=== PATIENT | female | born 1955 | race Caucasian/White ===

== ENCOUNTER 2024-03-08 16:35 | Emergency (ER) | payer OTHER, SELFPAY ==
[2024-03-08 16:45] VITALS: BP 187/101
[2024-03-08 17:10] LABS: % Basophils 0.4 % (0-2); % Eosinophils 0.1 % (0-6); % Immature Granulocytes 0.4 % (0-0.5); % Monocytes 4.6 % (1.7-9.3); % Neutrophils 79.5 % (42.2-75.2); Absolute Lymphocytes 1.3 10^3/uL (1.2-3.4); Absolute Monocytes 0.4 10^3/uL (0.1-0.6); Absolute Neutrophils 6.7 10^3/uL (1.4-6.5); Hematocrit 41.6 % (37.0-47.0); Mean Corp Hgb Conc. 33.7 g/dL (33.0-37.0); Mean Corpuscular Volume 92.2 fL (81.0-99.0); Mean Platelet Volume 9.3 fL (7.4-10.4); Nucleated Red Blood Cells % 0 %; Platelet Count 259 10^3/uL (130-400); Red Blood Cell Count 4.51 10^6/uL (4.20-5.40); Red Cell Dist. Width 12.4 % (11.5-14.5); White Blood Cell Count 8.5 10^3/uL (4.8-10.8)
[2024-03-08 17:29] LABS: ALT (SGPT) 25 U/L (0-35); AST (SGOT) 30 U/L (14-36); Alkaline Phosphatase 70 U/L (38-126); Blood Urea Nitrogen 20 mg/dl (7-17); Calcium 10.2 mg/dl (8.4-10.2); Carbon Dioxide 24 mmol/L (22-30); Chloride 104 mmol/L (98-107); Glucose 119 mg/dl (70-99); Potassium 4.8 mmol/L (3.5-5.1); Sodium 143 mmol/L (135-145); Total Bilirubin 0.7 mg/dl (0.2-1.3); Total Protein 8.1 g/dl (6.3-8.2); eGFR > 60.00
[2024-03-08 17:36] LABS: Troponin I < 0.012 ng/ml
[2024-03-08 18:20] VITALS: BMI 22.6
[2024-03-08 18:24] VITALS: BP 157/82
[2024-03-08 19:00] VITALS: BP 168/103
--- NOTE | 2024-03-08 19:16 | ED.GENMED ---
History of Present Illness
General
Chief Complaint: Blood Pressure Problem
Source: patient
Exam Limitations: none
Time Seen by Provider: 03/08/24 18:12
Nursing documentation reviewed up to this point in time: agreed with
History of Present Illness
History of Present Illness:
Patient to ED with report of elevated BP. States she was seen by PCP in early summer for routine physical. Advised that her BP was borderline high. SHe was instructedto keep a BP diary and return for follow up after summer. States she did not
recheck her BP after that. Thurs she reports 'not feeling right' after her gym work-out and has felt off since. Today her friend checked her BP and told her it was high. SHe called her PCP who advised her to come to ED for eval. Denies headache,
dizziness, blurred vision. Denies any CP/pressure, SOB. BP 158/82
Past History
Past History
ED Past Medical History: None
ED Past Surgical History: None
Social History
Tobacco: Non-smoker
Alcohol: Occasional
Drug: None
Employment: Employed
Review of Systems
Review of Systems
Allergies reviewed?: Yes
All Other Systems: ROS reviewed and negative except as documented in HPI and ROS
Constitutional: Reports no symptoms
EENT: Reports no symptoms
Respiratory: Reports no symptoms
Cardiac: Reports other (Elevated BP reading STUDIO MODEL)
ABD/GI: Reports no symptoms
: Reports no symptoms
Musculoskeletal: Reports no symptoms
Skin: Reports no symptoms
Neurological: Reports no symptoms
Psychiatric: Reports no symptoms
Phy Exam
General Physical Exam
General Presentation: well appearing and no apparent distress
General age: appears stated age
General Skin: warm and dry
General Habitus: normal
General Mental: alert
Cardiovascular Exam
Cardiovascular Exam: regular rate/rhythm and no edema
Pulmonary Exam
Pulmonary Exam: lungs clear and no respiratory distress
Musculoskeletal Exam
Musculoskeletal Exam: full ROM and neuro vasc intact
Skin Exam
Skin Exam: normal color, warm/dry and no rash
Psychiatric Exam
Psychiatric Exam: normal mood/affect
Course
Orders/Labs/Results
Orders:
Orders
03/08/24 16:49
Electrocardiogram (*1) Urgent
Reason for Study: Hypertension, Benign
EKG- Treatment ONCE
03/08/24 16:57
Complete Blood Count/With Diff Urgent
Comprehensive Metabolic Panel Urgent
Troponin I Urgent
Abnormal Lab Results
03/08/24
16:57
Absolute Neuts (auto) 6.7 H 10^3/uL
(1.4-6.5)
Neutrophils % 79.5 H %
(42.2-75.2)
Lymphocytes % 15.0 L %
(20.5-51.1)
BUN 20 H mg/dl
(7-17)
Glucose 119 H mg/dl
(70-99)
03/08/24 16:57
03/08/24 16:57
Vital Signs
Initial and Last Documented VS:
Initial Vital Signs
Temp Pulse Resp BP Pulse Ox
98.2 F 97 16 187/101 98
03/08/24 16:45 03/08/24 16:45 03/08/24 16:45 03/08/24 16:45 03/08/24 16:45
Last Documented Vital Signs
Temp Pulse Resp BP Pulse Ox
98.2 F 78 18 168/103 100
03/08/24 16:45 03/08/24 19:23 03/08/24 19:23 03/08/24 19:00 03/08/24 19:15
MDM/Problems Addressed
Differential Diagnosis Includes:
Patient to ED for BP check. She had her BP checked by friend today and was told it was high. Reviewed labs, EKG with her. BP 158/82. Recommend random BP checks at home that she will document and then follow up with PCP. She is agreeable to
this. She was given instructions on s/s to return to ED and she is agreeable to plan.
*Pulse Oximetry
Patient hypoxic: no
*EKG
Comparison EKG: no changes
Rate: normal
Rhythm: sinus
*Critical Care Note
Total Time (30-74mins, 75-104mins- exclusive of procedures): Not Applicable
ED Attending Note
-
Portions of this chart may have been created with voice recognition software.� Occasional wrong word or��sound alike� substitutions may have occurred due to the inherent limitations of voice recognition software.
Discharge Plan
Departure
Patient Disposition: Home (Routine Discharge)
Date of Disposition: 03/08/24
Time of Disposition: 19:15
Patient with high blood pressure during this ER visit?: No
Condition: Good
Covid-19: Not Applicable
Discharge Problem:
Elevated blood pressure reading
Instructions: BLOOD PRESSURE
Referrals:
UNKNOWN - PT DOES,NOT KNOW [Family Provider] -
Activity Restrictions/Additional Instructions:
As we discussed, keep a blood pressure diary, follow up with your family doctor.
Interventions
Interventions:
*Risk Screen - Suicide Last Done: 03/08/24 16:45
*General Assessment Last Done: 03/08/24 18:20
*Neglect/Abuse Screening Last Done: 03/08/24 16:45
ED- Fall Risk Assessment Last Done: 03/08/24 18:20
*ED COVID-19 Vaccine History Last Done: 03/08/24 18:20
*Nursing Disposition Last Done: 03/08/24 19:24
ED- Cardiac Assessment Last Done: 03/08/24 18:24
ED- Neurological Assessment Last Done: 03/08/24 18:24
ED- Pulmonary Assessment Last Done: 03/08/24 18:24
Discharge Date and Time
Discharge Date/Time: 03/08/24 19:25
Print Language: ECUADOREAN
== END 2024-03-08 19:25 | disposition home or self-care (01) ==
LOC: EMR 16:35
PROVIDERS: EMERGENCY PHYSICIAN Emergency Medicine
DX: I10 Essential (primary) hypertension (principal)
CPT/HCPCS: 99283; 80053; 84484; 85025; 93005

== ENCOUNTER 2024-04-14 12:14 | Emergency (ER) | payer OTHER, SELFPAY ==
[2024-04-14 12:21] VITALS: BP 171/78
[2024-04-14 12:45] LABS: % Basophils 0.3 % (0-2); % Eosinophils 0.4 % (0-6); % Immature Granulocytes 0.6 % (0-0.5); % Lymphocytes 19.7 % (20.5-51.1); % Monocytes 6.4 % (1.7-9.3); % Neutrophils 72.6 % (42.2-75.2); Absolute Lymphocytes 1.3 10^3/uL (1.2-3.4); Absolute Monocytes 0.4 10^3/uL (0.1-0.6); Absolute Neutrophils 4.9 10^3/uL (1.4-6.5); Hematocrit 39.7 % (37.0-47.0); Hemoglobin 13.6 g/dL (12.0-16.0); Mean Corp Hgb Conc. 34.3 g/dL (33.0-37.0); Mean Corpuscular Hgb 31.3 pg (27.0-31.0); Mean Corpuscular Volume 91.3 fL (81.0-99.0); Mean Platelet Volume 9.3 fL (7.4-10.4); Nucleated Red Blood Cells % 0 %; Platelet Count 317 10^3/uL (130-400); Red Blood Cell Count 4.35 10^6/uL (4.20-5.40); Red Cell Dist. Width 12.2 % (11.5-14.5); White Blood Cell Count 6.7 10^3/uL (4.8-10.8)
[2024-04-14 13:01] LABS: ALT (SGPT) 25 U/L (0-35); AST (SGOT) 33 U/L (14-36); Alkaline Phosphatase 69 U/L (38-126); Blood Urea Nitrogen 20 mg/dl (7-17); Calcium 9.9 mg/dl (8.4-10.2); Carbon Dioxide 25 mmol/L (22-30); Chloride 102 mmol/L (98-107); Glucose 110 mg/dl (70-99); Potassium 4.1 mmol/L (3.5-5.1); Sodium 137 mmol/L (135-145); Total Bilirubin 0.8 mg/dl (0.2-1.3); Total Protein 7.8 g/dl (6.3-8.2); eGFR > 60.00
[2024-04-14 13:13] LABS: Troponin I < 0.012 ng/ml
--- NOTE | 2024-04-14 14:59 | ED.GENMED ---
History of Present Illness
General
Chief Complaint: Chest Pain
Time Seen by Provider: 04/14/24 14:59
History of Present Illness
History of Present Illness:
TIME OF INITIAL ENCOUNTER: 3 PM
HPI: The patient presents with chest discomfort described somewhat as a pressure 'but not like an elephant sitting on my chest', this started at around 11 AM today. Of note she has been having symptoms including general unwell feeling recently that
she thinks could be related to being on amlodipine for the past month. Her primary doctor told her to stop the Norvasc and today she had more pain. She currently denies any pain.
EXAM:
GENERAL: Well appearing in no distress
HEENT: Moist oral mucosa
CARDIOVASCULAR: No murmurs, normal heart rate, regular rhythm, No chest wall tenderness
PULMONARY: No respiratory distress, breath sounds are clear and equal
ABDOMEN: Soft with no peritoneal signs, no tenderness
NEUROLOGIC: Excellent strength all extremities, no coordination deficits
PSYCHIATRIC: Appropriate mental status, normal insight and judgement
EXTREMITIES: Nontender, no edema, moves all extremities equally
SKIN: No rash, no lesions
NUMBER AND COMPLEXITY OF PROBLEMS ADDRESSED AT THE ENCOUNTER
� Chronic conditions affecting care: High blood pressure
� Acute Exacerbation and/or Progression of Chronic Illness: This is an acute problem
� Differential Diagnosis includes: Medication related side effects, acute coronary syndrome unlikely, anxiety
AMOUNT AND/OR COMPLEXITY OF DATA TO BE REVIEWED AND ANALYZED
� I performed an independent evaluation of and my interpretation is:
EKG: Sinus 85, nonspecific anterior ST abnormality but not significantly changed compared to last month
CT:
X-rays:
Laboratory Studies: White count and hemoglobin are normal, chemistries relatively unremarkable, troponin negative.
Other:
� Review of other/old records: I reviewed records, the patient was seen here 1 month ago with elevated blood pressure
� Clinical information was obtained by an independent historian: None needed
� Prescriptions/Medications Considered but not given:
� Further testing considered but not performed:
RISK OF COMPLICATIONS AND/OR MORBIDITY OR MORTALITY OF PATIENT MANAGEMENT
� Social determinants of health affecting care: Lives at home
� Discussion with other providers:
� Escalation of care including admission/observation vs risk of discharge considered: We did 2 cardiac troponins both of which were negative. She is eager to go home. She does not want to start any other blood pressure
medication at this time and wants to talk to her primary care doctor tomorrow.
ANY OTHER UPDATES:
Past History
Past History
ED Past Medical History: None
ED Past Surgical History: None
Social History
Tobacco: Non-smoker
Alcohol: Occasional
Drug: None
Employment: Employed
Phy Exam
Physical Exam
Physical Exam:
See HPI
Scores
Heart Score for Chest Pain Patients
STEMI patient?: Not applicable
Course
Orders/Labs/Results
Orders:
Orders
04/14/24 12:15
EKG [Electrocardiogram (*1)] Urgent
Reason for Study: Chest Pain
EKG- Treatment ONCE
04/14/24 12:32
CMP [Comprehensive Metabolic Panel] Urgent
Complete Blood Count/With Diff Urgent
Troponin I Urgent
04/14/24 15:26
Troponin I Urgent
Abnormal Lab Results
1824
12:32
MCH 31.3 H pg
(27.0-31.0)
Immature Gran % 0.6 H %
(0-0.5)
Lymphocytes % 19.7 L %
(20.5-51.1)
BUN 20 H mg/dl
(7-17)
Glucose 110 H mg/dl
(70-99)
04/14/24 12:32
04/14/24 12:32
Vital Signs
Initial and Last Documented VS:
Initial Vital Signs
Temp Pulse Resp BP Pulse Ox
36.8 C 96 16 171/78 96
04/14/24 12:21 04/14/24 12:21 04/14/24 12:21 04/14/24 12:21 04/14/24 12:21
Last Documented Vital Signs
Temp Pulse Resp BP Pulse Ox
36.8 C 89 19 157/88 100
04/14/24 12:21 04/14/24 17:02 04/14/24 17:02 04/14/24 17:02 04/14/24 17:02
*Critical Care Note
Total Time (30-74mins, 75-104mins- exclusive of procedures): Not Applicable
ED Attending Note
-
Portions of this chart may have been created with voice recognition software.� Occasional wrong word or��sound alike� substitutions may have occurred due to the inherent limitations of voice recognition software.
Discharge Plan
Departure
Patient Disposition: Home (Routine Discharge)
Date of Disposition: 04/14/24
Time of Disposition: 16:09
Patient with high blood pressure during this ER visit?: Yes
Discharge Problem:
Chest pain
Instructions: Chest Pain DCA Follow Up
Referrals:
Bharat Hurtado MD [Active] - Follow up in 2-3 days
UNKNOWN - PT NOT,INTERVIEWE [Family Provider] -
Activity Restrictions/Additional Instructions:
Follow-up with your primary care doctor. I would also like you to follow-up with a band attacher such as Dr. Hurtado. Somebody from their office should be calling you to arrange follow-up. Return here if worse or other concerns.
Interventions
Interventions:
*Risk Screen - Suicide Last Done: 04/14/24 12:21
*General Assessment Last Done: 04/14/24 12:21
*Neglect/Abuse Screening Last Done: 04/14/24 12:21
ED- Fall Risk Assessment Last Done: 04/14/24 15:42
*ED COVID-19 Vaccine History Last Done: 04/14/24 12:21
*Nursing Disposition Last Done: 04/14/24 17:02
ED- Cardiac Assessment Last Done: 04/14/24 15:42
Discharge Date and Time
Discharge Date/Time: 04/14/24 17:03
Print Language: THAI
[2024-04-14 15:23] VITALS: BP 145/79
[2024-04-14 15:42] VITALS: BMI 21.1
[2024-04-14 16:00] LABS: Troponin I < 0.012 ng/ml
[2024-04-14 16:35] VITALS: BP 157/88
[2024-04-14 17:02] VITALS: BP 157/88
== END 2024-04-14 17:03 | disposition home or self-care (01) ==
LOC: EMR 12:14
PROVIDERS: Student in an Organized Health Care Education/Training Program; EMERGENCY PHYSICIAN Emergency Medicine
DX: R07.89 Other chest pain (principal); R03.0 Elevated blood-pressure reading, without diagnosis of hypertension
CPT/HCPCS: 99284; 80053; 84484; 85025; 93005

== ENCOUNTER → 2024-05-20 10:18 | Outpatient (REF) | payer OTHER, SELFPAY | LOC: RCS 10:18 | PROVIDERS: ATTENDING PHYSICIAN Internal Medicine Cardiovascular Disease | DX: R07.89 Other chest pain (principal) | CPT/HCPCS: 93017 ==

== ENCOUNTER → 2024-07-01 14:34 | Outpatient (REF) | payer OTHER, SELFPAY | LOC: RCS 14:34 | PROVIDERS: ATTENDING PHYSICIAN Internal Medicine Cardiovascular Disease | DX: I10 Essential (primary) hypertension (principal); R07.89 Other chest pain | CPT/HCPCS: 93306 ==

== ENCOUNTER 2024-08-26 16:32 | Emergency (ER) | payer OTHER, SELFPAY ==
[2024-08-26 16:35] VITALS: BP 173/84
[2024-08-26 18:10] VITALS: BMI 18.8
[2024-08-26 18:14] VITALS: BP 163/84
[2024-08-26 18:19] VITALS: BP 151/77
[2024-08-26 18:23] LABS: % Basophils 0.6 % (0-2); % Eosinophils 0.2 % (0-6); % Lymphocytes 31.2 % (20.5-51.1); % Monocytes 7.6 % (1.7-9.3); % Neutrophils 60.4 % (42.2-75.2); Absolute Lymphocytes 1.5 10^3/uL (1.2-3.4); Absolute Monocytes 0.4 10^3/uL (0.1-0.6); Hematocrit 38.1 % (37.0-47.0); Hemoglobin 13.1 g/dL (12.0-16.0); Mean Corp Hgb Conc. 34.4 g/dL (33.0-37.0); Mean Corpuscular Hgb 32.2 pg (27.0-31.0); Mean Corpuscular Volume 93.6 fL (81.0-99.0); Mean Platelet Volume 9.4 fL (7.4-10.4); Nucleated Red Blood Cells % 0 %; Platelet Count 241 10^3/uL (130-400); Red Blood Cell Count 4.07 10^6/uL (4.20-5.40); Red Cell Dist. Width 12.2 % (11.5-14.5); White Blood Cell Count 4.9 10^3/uL (4.8-10.8)
[2024-08-26 18:38] LABS: ALT (SGPT) 22 U/L (0-35); AST (SGOT) 26 U/L (14-36); Albumin 4.7 g/dl (3.5-5.0); Alkaline Phosphatase 62 U/L (38-126); Blood Urea Nitrogen 13 mg/dl (7-17); Carbon Dioxide 25 mmol/L (22-30); Chloride 106 mmol/L (98-107); Estimated Creatinine Clearance 58 ml/min; Glucose 104 mg/dl (70-99); Potassium 4.3 mmol/L (3.5-5.1); Sodium 139 mmol/L (135-145); Total Bilirubin 0.8 mg/dl (0.2-1.3); Total Protein 7.4 g/dl (6.3-8.2); eGFR > 60.00
[2024-08-26 18:47] LABS: Troponin I < 0.012 ng/ml
[2024-08-26 19:00] VITALS: BP 141/71
[2024-08-26 20:00] VITALS: BP 163/75
--- NOTE | 2024-08-26 20:16 | ED.GENMED ---
History of Present Illness
General
Chief Complaint: Fatigue
Source: patient
Time Seen by Provider: 08/26/24 19:32
History of Present Illness
History of Present Illness:
68-year-old female with past medical history of hypertension presenting to the emergency department for evaluation of what she describes to be excessive fatigue for the last few weeks as well as elevated blood pressure. Patient states that this has
been an issue for her but has been ongoing, recently had extensive cardiac workup without any abnormalities. She has been having her blood pressure medications changed recently from amlodipine to losartan and has had increased doses of her losartan
well. Patient consistently talking about different ranges of her blood pressure which has her earned. She denies fevers or recent infections, headaches, visual changes, chest pain, shortness of breath, abdominal pain or any other concerns.
Past History
Past History
ED Past Medical History: HTN
ED Past Surgical History: None
Social History
Tobacco: Non-smoker
Alcohol: Occasional
Drug: None
Personal:
Living: with family
Employment: Employed
Review of Systems
Review of Systems
All Other Systems: ROS reviewed and negative except as documented in HPI and ROS
Phy Exam
Physical Exam
Physical Exam:
GENERAL: Alert , in no apparent distress
EYE: conjunctiva clear
NECK: Supple
ENT: o/p clr, mmm.
CARDIAC: Regular rate and rhythm
LUNGS: Clear breath sounds bilaterally, no acute respiratory distress, no wheezes/rales/rhonchi
NEUROLOGICAL: Alert and oriented
SKIN: Warm and dry, skin intact.
MUSCULOSKELETAL: well perfused.
PSYCH: Normal and appropriate interaction. However patient does have an anxious affect
Scores
Heart Failure Risk
Heart Failure Risk Score: Not Applicable
Heart Score for Chest Pain Patients
STEMI patient?: Not applicable
Withdrawal Assessment of Alcohol
Withdrawal Assessment Completed?: Not applicable
Course
Orders/Labs/Results
Orders:
Orders
08/26/24 18:03
EKG [Electrocardiogram (*1)] Urgent
Reason for Study: Vertigo / Dizzy
EKG- Treatment ONCE
Orthostatic VS- Treatment ONCE
08/26/24 18:12
Complete Blood Count/With Diff Urgent
Comprehensive Metabolic Panel Urgent
Magnesium Urgent
Troponin I Urgent
Abnormal Lab Results
08/26/24
18:12
RBC 4.07 L 10^6/uL
(4.20-5.40)
MCH 32.2 H pg
(27.0-31.0)
Glucose 104 H mg/dl
(70-99)
08/26/24 18:12
08/26/24 18:12
Vital Signs
Initial and Last Documented VS:
Initial Vital Signs
Temp Pulse Resp BP Pulse Ox
98.6 F 98 16 173/84 100
08/26/24 16:35 08/26/24 16:35 08/26/24 16:35 08/26/24 16:35 08/26/24 16:35
Last Documented Vital Signs
Temp Pulse Resp BP Pulse Ox
97.6 F 79 10 163/75 98
08/26/24 18:14 08/26/24 20:00 08/26/24 20:00 08/26/24 20:00 08/26/24 18:14
MDM/Problems Addressed
Differential Diagnosis Includes:
Anemia, electrolyte derangement, viral syndrome, anxiety, no concern for hypertensive urgency/emergency or other emergent process
MDM/Problems Addressed:
68-year-old female presenting the ER for evaluation of fatigue that has been waxing waning for the last few weeks. So far outpatient workup has not revealed any acute pathologies. Workup here thus far including labs, EKG unremarkable as well.
Patient does have slightly elevated blood pressure here and she does seem very anxious and overwhelmed with her blood pressure readings. Patient without any symptoms to suggest endorgan dysfunction or hypertensive urgency. I discussed with patient
that her symptoms do seem to be very related to her fixation on her blood pressure and that it would likely benefit her to just check her blood pressure once daily. I encouraged her to follow-up closely with primary care provider. Aware of return
precautions to the ER but otherwise stable for discharge home.
Chronic conditions affecting care: HTN
*Pulse Oximetry
Patient hypoxic: no
*EKG
Interpreted by ED Provider?: Yes
Heart Rate: 75
Rate: normal
Rhythm: sinus
Ischemia: non-specific ST changes
*Accounts Receivable Assistant Interpretation
Rate: normal
Rhythm: sinus
*Critical Care Note
Total Time (30-74mins, 75-104mins- exclusive of procedures): Not Applicable
Data Reviewed
Review of Other/Old Records Reveals: Records and Testing
Source: patient and records
ED Attending Note
-
Portions of this chart may have been created with voice recognition software.� Occasional wrong word or��sound alike� substitutions may have occurred due to the inherent limitations of voice recognition software.
Discharge Plan
Departure
Patient Disposition: Home (Routine Discharge)
Date of Disposition: 08/26/24
Time of Disposition: 20:17
Patient with high blood pressure during this ER visit?: Yes
Discharge Problem:
Fatigue
Instructions: Fatigue (DC)
Referrals:
PRIVATE,PHYSICIAN [Family Provider] -
Interventions
Interventions:
*Risk Screen - Suicide Last Done: 08/26/24 18:14
*General Assessment Last Done: 08/26/24 18:14
*Neglect/Abuse Screening Last Done: 08/26/24 18:14
*ED- Fall Risk Assessment Last Done: 08/26/24 18:14
*ED COVID-19 Vaccine History Last Done: 08/26/24 18:14
*Nursing Disposition Last Done: 08/26/24 20:34
Discharge Date and Time
Discharge Date/Time: 08/26/24 20:34
Print Language: SETSWA[place]
== END 2024-08-26 20:34 | disposition home or self-care (01) ==
LOC: EMR 16:32
PROVIDERS: Emergency Medicine; EMERGENCY PHYSICIAN Student in an Organized Health Care Education/Training Program
DX: R53.83 Other fatigue (principal); I10 Essential (primary) hypertension
CPT/HCPCS: 99283; 80053; 83735; 84484; 85025; 93005